=== PATIENT | male | born 1985 | race African-American/Black ===

== ENCOUNTER 2022-02-23 18:36 | Emergency (ER) | payer SELFPAY ==
[2022-02-23] MEDS ORDERED: Ketorolac Tromethamine 30 MG/ML VIAL ONE (19:37)
[2022-02-23 20:27] LABS: Bilirubin Negative (Negative); Blood, Urine Negative (Negative); Clarity Clear (Clear); Glucose, Urine (Dipstick) Normal (Negative); Ketone, Urine Trace mg/dL (Negative); Leukocyte Negative Leu/uL (Negative); Nitrite Negative (Negative); Protein, Urine (Dipstick) 20 mg/dL (Neg-Trace); Specific Gravity, Urine 1.029 (1.002-1.036); pH, Urine 6.5 (5.0-9.0)
[2022-02-24 21:59] LABS: Chlamydia by PCR Not Detected (NotDetected); GC by PCR Not Detected (NotDetected)
== END 2022-02-23 20:04 | disposition home or self-care (01) ==
LOC: ERS 18:36
DX: K40.90 Unilateral inguinal hernia, without obstruction or gangrene, not specified as recurrent (principal); F17.210 Nicotine dependence, cigarettes, uncomplicated
CPT/HCPCS: 81003; 87086; 87491; 87591; 96372; 99283; J1885

== ENCOUNTER 2022-11-25 14:56 | Emergency (ER) | payer SELFPAY ==
[2022-11-25] MEDS ORDERED: Acetaminophen 500 MG TAB ONE (17:23)
== END 2022-11-25 17:26 | disposition home or self-care (01) ==
LOC: ERS 14:56
DX: M54.50 Low back pain, unspecified (principal); F17.210 Nicotine dependence, cigarettes, uncomplicated
CPT/HCPCS: 74176